=== PATIENT | female | born 2000 ===

== ENCOUNTER 2022-04-17 11:45 | Emergency (ER) | payer MEDICAID ==
[~2022-04-17] VITALS: Ht 172 cm; Wt 95.0 kg
--- NOTE | 2022-04-17 12:32 | ED Integumentary General ---
General Chief Complaint: Skin/Wound Problems Stated Complaint: BOIL IN GROIN AREA Nursing Triage Note: ABSCESS ON GROIN. Source: patient Exam Limitations: no limitations History of Present Illness Date Seen by Provider: Apr 17, 2022 Time Seen by Provider: 12:22 Initial Comments 21-year-old female presents with abscess in groin for the last 2 days. States it has gotten bigger in size, denies any drainage. Denies fevers, abdominal pain, nausea, vomiting. Has history of hidradenitis suppurativa, for which she takes 100 mg of Doxycycline daily. States she has not had an abscess in a long time since being on the doxycycline. Allergies and Home Medications Allergies Coded Allergies: sebastián (Verified Allergy, Severe, HIVES, 04/17/22) Patient Home Medication List Home Medication List Reviewed: Yes Review of Systems Review of Systems Constitutional: see HPI Past Hkdfgdh-Bhpavy-Ishqdm Hx Patient Social History Smoking Status: Never a Smoker Substance use?: No Alcohol Use?: No Immunizations Up To Date Third COVID19 Vaccination Date: UNKNOWN COVID19 Vaccine Cripple Cutter: UNKNOWN Physical Exam Vital Signs Vital Signs - First Documented 04/17/22 12:06 Temp 37.0 Pulse 60 Resp 16 B/P (MAP) 135/68 (90) Pulse Ox 100 O2 Delivery Room Air Capillary Refill : Less Than 3 Seconds General Appearance: WD/WN, mild distress Neck: supple, normal inspection Cardiovascular: regular rate, rhythm, no edema, no gallop, no JVD, no murmur Respiratory: lungs clear, normal breath sounds, no respiratory distress, no accessory muscle use Extremities: normal range of motion, normal inspection Neurologic/Psychiatric: alert, normal mood/affect, oriented x 3 Skin: normal color, warm/dry Skin Problem Location: other (Groin) Skin Problem Character: abscess (Abscess to right posterior groin, induration, area of fluctuation, tenderness to palpation) Progress/Results/Core Measures Results/Orders My Orders Orders - KRISTA LINDSAY APRN Lidocaine 1% Inj 10 Ml (Xylocaine 1% Inj (04/17/22 12:45) Ibuprofen Tablet (Motrin Tablet) (04/17/22 13:45) Medications Given in ED Vital Signs/I&O 04/17/22 04/17/22 12:06 14:17 Temp 37.0 Pulse 60 72 Resp 16 16 B/P (MAP) 135/68 (90) 146/87 Pulse Ox 100 100 O2 Delivery Room Air Room Air Blood Pressure Mean: 90 Progress Progress Note : Progress Note Patient seen and evaluated, sitting in bed, mild distress. Abscess drained, Jose drain inserted and sutured in place. Patient instructed to increase her dose of doxycycline to 100 mg twice a day for the next 7 days. Patient instr ucted to follow-up with [facility], [facility], or return here in 2 days to have the drain removed. Discharge directions and return precautions provided. Departure Impression Primary Impression: Abscess Disposition: 01 HOME, SELF-CARE Condition: Stable Departure-Patient Inst. Decision time for Depature: 14:10 Patient Instructions: Abscess Incision and Drainage (DC) Add. Discharge Instructions: Increase your doxycycline to 100 mg twice a day for the next 7 days. You may take Tylenol or ibuprofen for pain. See [facility], or return here in 2 days to have the drain removed. 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 Return for worsening pain, fevers, or any other new, concerning, or worsening symptoms. All discharge instructions reviewed with patient and/or family. Voiced understanding. Work/School Note: School/Childcare Release, Date Seen in the Emergency Department: Apr 17, 2022 Return to School: Apr 18, 2022 Restrictions: No Restrictions Work Release Form Date Seen in the Emergency Department: Apr 17, 2022 Return to Work: Apr 18, 2022 Restrictions: No Restrictions KRISTA LINDSAY APRN Apr 17, 2022 12:32
[2022-04-17] MEDS ORDERED: LIDOCAINE 1% INJ 10 ML VIAL INJ ONE (12:45)
[2022-04-17] MEDS ORDERED: IBUPROFEN 800 MG (MOTRIN) TAB PO ONE (13:45)
[2022-04-17 14:17] VITALS: BP 146/87
== END 2022-04-17 14:21 | disposition home or self-care (01) ==
LOC: ER 11:50
DX: L02.214 Cutaneous abscess of groin (principal)
CPT/HCPCS: 10160

== ENCOUNTER 2022-04-21 12:00 | Emergency (ER) | payer MEDICAID ==
--- NOTE | 2022-04-21 12:26 | ED Integumentary General ---
General Chief Complaint: Skin/Wound Problems Stated Complaint: SUTURE REMOVAL Source: patient Exam Limitations: no limitations History of Present Illness Date Seen by Provider: Apr 21, 2022 Time Seen by Provider: 12:20 Initial Comments 21-year-old female presents to the ED for wound check. She was here on 04/17 for an abscess to the right groin. It was I&D'd at that time. A Larned drain was placed. Patient thinks that the drain has fallen out now. She reports she had a lot of pain the first 2 days after restraints, but it is currently feeling better. Allergies and Home Medications Allergies Coded Allergies: sebastián (Verified Allergy, Severe, HIVES, 04/17/22) Patient Home Medication List Home Medication List Reviewed: Yes Review of Systems Review of Systems Constitutional: no symptoms reported Respiratory: no symptoms reported Cardiovascular: no symptoms reported Skin: other (Wound to right groin) Past Xzvsuxl-Adkudy-Ksuowc Hx Patient Social History Tobacco Use?: No Use of E-Cig and/or Vaping dev: No Substance use?: No Alcohol Use?: No Pt feels they are or have been: No Immunizations Up To Date Influenza Vaccine Up-to-Date: No; Not Current First/Initial COVID19 Vaccinat: X3 Second COVID19 Vaccination Venkat: X3 Third COVID19 Vaccination Date: UNKNOWN Past Medical History Surgery/Hospitalization HX: HS- [facility] Physical Exam Vital Signs Capillary Refill : General Appearance: WD/WN, no apparent distress Neck: supple, normal inspection Cardiovascular: regular rate, rhythm, no edema, no gallop, no JVD, no murmur Respiratory: lungs clear, normal breath sounds, no respiratory distress, no accessory muscle use Extremities: normal range of motion, normal inspection Neurologic/Psychiatric: alert, normal mood/affect Skin: normal color, warm/dry Skin Problem Location: other (Right groin) Skin Problem Character: other (Small healing wound, no abscess) Progress/Results/Core Measures Progress Progress Note : Time: 12:25 Progress Note Patient seen and evaluated, resting comfortably, no distress. Larned drain removed. Healing wound noted to right groin. No area of abscess. Will discharge at this time. Patient instructed to continue doxycycline twice a day until she reaches 7 days. Instructed to follow-up with kiln operator. Charmaine acosta instructions and return precautions provided. Departure Impression Primary Impression: Abscess Disposition: 01 HOME, SELF-CARE Condition: Stable Departure-Patient Inst. Decision time for Depature: 12:25 Referrals: NO,LOCAL PHYSICIAN (PCP/Family) Primary Care Physician Patient Instructions: Hidradenitis Suppurativa Add. Discharge Instructions: Continue doxycycline twice a day until you have taken it twice a day for 7 days. Follow-up with your kiln operator. Return for increased pain, fever, or any other new, concerning, or worsening symptoms. All discharge instructions reviewed with patient and/or family. Voiced understanding. KRISTA LINDSAY APRN Apr 21, 2022 12:26
[2022-04-21 12:34] VITALS: BP 127/70
== END 2022-04-21 12:35 | disposition home or self-care (01) ==
LOC: EDUNIT# 12:00 → ER 12:03
DX: L02.214 Cutaneous abscess of groin (principal)
CPT/HCPCS: 99282

== ENCOUNTER 2022-06-16 12:06 | Emergency (ER) | payer MEDICAID ==
[~2022-06-16] VITALS: Ht 172 cm; Wt 104.0 kg
--- NOTE | 2022-06-16 13:02 | ED Lower Extremity ---
General Chief Complaint: Lower Extremity Stated Complaint: INJ LEFT ANKLE Source: patient Exam Limitations: no limitations (VARINDER MOONEY) History of Present Illness Date Seen by Provider: June 16, 2022 Time Seen by Provider: 13:00 Initial Comments Patient is a 21-year-old female who presents ED with left lateral ankle pain. She states around 2 AM she missed the last step on some stairs twisting her left ankle inward. She was able to go home afterwards. Today she is not able to bear weight. Dull pain to the left lateral ankle with any type of movement. She noted notable swelling. Denies taking thing for pain. No history of previous fracture. Denies of any calf pain, foot pain, knee pain. She denies hitting her head (VARINDER MOONEY) Allergies and Home Medications Allergies Coded Allergies: sebastián (Verified Allergy, Severe, HIVES, 04/17/22) Patient Home Medication List Home Medication List Reviewed: Yes (VARINDER MOONEY) Ibuprofen (Ibuprofen) 600 Mg Tablet, 600 MG PO Q6H Prescribed by: SAL LOCKHART on 06/16/22 7697 Review of Systems Constitutional: No chills, No diaphoresis, No malaise, No weakness EENTM: No ear pain, No blurred vision, No double vision, No mouth pain, No mouth swelling Respiratory: No cough, No dyspnea on exertion Cardiovascular: No chest pain Gastrointestinal: No abdominal pain, No diarrhea, No nausea, No vomiting Genitourinary: No decreased output, No discharge Musculoskeletal: joint pain, joint swelling, muscle pain Skin: No change in color (VARINDER MOONEY) All Other Systems Reviewed Negative Unless Noted: Yes (VARINDER MOONEY) Past Ariecut-Bqdywy-Jdhmql Hx Patient Social History Tobacco Use?: No Substance use?: No Alcohol Use?: No Pt feels they are or have been: No (VARINDER MOONEY) Immunizations Up To Date First/Initial COVID19 Vaccinat: X3 Second COVID19 Vaccination Venkat: X3 Third COVID19 Vaccination Date: X3 COVID19 Vaccine Peanut Shaker: [place] (VARINDER MOONEY) Past Medical History Surgery/Hospitalization HX: HS- [facility] (VARINDER MOONEY) Physical Exam Vital Signs Vital Signs - First Documented 06/16/22 06/16/22 12:54 13:55 Temp 36.7 Pulse 86 Resp 18 B/P (MAP) 114/81 (92) Pulse Ox 97 O2 Delivery Room Air (ALBERTINA SANZ MD) Vital Signs Capillary Refill : (VARINDER MOONEY) Height, Weight, BMI Height: '" Weight: lbs. oz. kg; 32.00 BMI Method: General Appearance: WD/WN, no apparent distress HEENT: PERRL/EOMI, normal ENT inspection, TMs normal, pharynx normal Neck: non-tender, full range of motion, supple, normal inspection Cardiovascular: regular rate, rhythm, no edema, no gallop, no JVD Respiratory: chest non-tender, lungs clear, normal breath sounds, no respiratory distress, no accessory muscle use Gastrointestinal: normal bowel sounds, non tender, soft, no organomegaly Hips: bilateral hip non-tender, bilateral hip normal inspection, bilateral hip normal range of motion Knees: bilateral knee non-tender, bilateral knee normal inspection, bilateral knee normal range of motion Ankles: left ankle normal range of motion, left ankle pain (Tenderness to left lateral malleolus.), left ankle soft tissue tenderness, left ankle swelling Feet: bilateral foot non-tender, bilateral foot normal inspection, bilateral foot normal range of motion, bilateral foot other (Dorsalis pedis left foot +2. 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 Does have adequate movement but with pain. Dorsalis pedis, posterior tibialis +2. No foot tenderness. X-ray was ordered concerning for fracture versus ankle sprain. X-ray was negative for acute fracture. Discussed all results with patient. Views anything for pain. Ice was applied. Recommend ice 3-4 times for the next 3 to 4 days, Archie wrap for support. Was given crutches. Discussed lace brace, Aircast to give support. Orthopedic follow-up in 10 to 14 days if pain progress for recheck with x-ray. If any worsening symptoms return back to ED for further evaluation (VARINDER MOONEY) Impression Primary Impression: Ankle sprain Disposition: HOME, SELF-CARE Condition: Stable Departure-Patient Inst. Decision time for Depature: 13:36 (VARINDER MOONEY) Referrals: [facility] [place] [place],LOCAL PHYSICIAN (PCP) Primary Care Physician TIKA LOZANO MD Patient Instructions: Ankle Sprain ED Add. Discharge Instructions: Recommend anti-inflammatories to help with pain. Crutches as needed. Ice and elevate. Orthopedic follow-up in 7 to 10 days if pain progress All discharge instructions reviewed with patient and/or family. Voiced understanding. Scripts Ibuprofen (Ibuprofen) 600 Mg Tablet 600 MG PO Q6H for PAIN, #16 TAB 0 Refills Prov: VARINDER MOONEY 06/16/22 Work/School Note: Work Release Form Date Seen in the Emergency Department: June 16, 2022 Return to Work: June 18, 2022 ATTENDING PHYSICIAN NOTE: I was physically present as attending physician in the emergency department during the care of this patient, but I was not directly involved in the decision making or delivery of care for this patient. (ALBERTINA SANZ MD) VARINDER MOONEY June 16, 2022 13:02 ALBERTINA SANZ MD June 16, 2022 15:22
--- NOTE | 2022-06-16 13:27 | Diagnostic Imaging Report ---
CLINICAL HISTORY: Left ankle pain. Injury. COMPARISON: None. TECHNIQUE: 3 views of the left ankle. FINDINGS: There is no acute fracture or dislocation of the left ankle. Alignment is anatomic. The imaged joint spaces are preserved. No focal osseous lesions. IMPRESSION: 1. No acute fracture or dislocation in the left ankle. Dictated by: Dictated on workstation # [id number]
[2022-06-16] MEDS ORDERED: IBUP-1773 PO (13:37)
[2022-06-16 13:55] VITALS: BP 137/87
== END 2022-06-16 13:55 | disposition home or self-care (01) ==
LOC: EDUNIT# 12:06 → ER 12:08
DX: S93.402A Sprain of unspecified ligament of left ankle, initial encounter (principal); X50.1XXA Overexertion from prolonged static or awkward postures, initial encounter
CPT/HCPCS: 73610